=== PATIENT | male | born 1945 | race Caucasian/White ===

== ENCOUNTER 2024-01-07 17:51 | Inpatient (IN) | payer OTHER ==
[~2024-01-07] VITALS: Ht 188 cm; Wt 106.3 kg
[2024-01-07] MEDS ORDERED: Nitroglycerin 0.4 MG SUBL SL PRN (18:15)
[2024-01-07] MEDS ORDERED: NS 1,000 ML IV ONE (18:19)
[2024-01-07] MEDS ORDERED: NS 1,000 ML IV SCH (18:25)
[2024-01-07 18:33] LABS: BASOPHILS ABSOLUTE AUTO 0.04 K/mm3 (0.00-0.23); BASOPHILS PERCENT AUTO 1 % (0-2); EOSINOPHILS ABSOLUTE AUTO 0.13 K/mm3 (0.00-0.68); EOSINOPHILS PERCENT AUTO 2 % (0-6); Hematocrit 45.6 % (37.0-53.0); Hemoglobin 14.5 g/dL (13.5-17.5); IMMATURE GRAN ABSOLUTE AUTO 0.01 K/mm3 (0.00-0.10); IMMATURE GRAN PERCENT AUTO 0 % (0-1); LYMPHOCYTES ABSOLUTE AUTO 0.88 K/mm3 (0.84-5.20); LYMPHOCYTES PERCENT AUTO 13 % (21-46); MONOCYTES ABSOLUTE AUTO 0.54 K/mm3 (0.16-1.47); MONOCYTES PERCENT AUTO 8 % (4-13); Mean Corpuscular HGB 30.9 pg (26.0-34.0); Mean Corpuscular HGB Conc 31.8 g/dL (31.5-36.5); Mean Corpuscular Volume 97 fL (80-100); Mean Platelet Volume 9.2 fL (9.1-12.4); NEUTROPHILS ABSOLUTE AUTO 5.44 K/mm3 (1.96-9.15); NEUTROPHILS PERCENT AUTO 77 % (41-73); Platelet Count 218 K/mm3 (150-400); RDW Coefficient Variation 12.8 % (11.7-14.2); RDW Standard Deviation 45.7 fL (35.1-46.3); White Blood Cell Count 7.04 K/mm3 (4.00-11.30)
[2024-01-07 19:04] LABS: Bun/Creatinine Ratio 20.7 (12.0-20.0); Creatinine, Blood 1.4 mg/dL (0.60-1.20); Potassium, Blood 4.7 mmol/L (3.5-5.5)
[2024-01-07] MEDS ORDERED: Adenosine 3 MG/ML 2 ML Vial IV ONE (19:49)
[2024-01-07] MEDS ORDERED: FLU VACC TS2024-25(6MOS UP)/PF 45 MCG/0.5 ML SYRINGE IM SCH (20:45)
[2024-01-07] MEDS ORDERED: Ondansetron HCl 2 MG / ML 2ML Vial IV PRN (20:50)
[2024-01-07] MEDS ORDERED: Aspirin 81 MG Chew PO SCH (21:00)
[2024-01-07] MEDS ORDERED: Clopidogrel Bisulfate 75 MG Tab PO SCH (21:00)
[2024-01-07] MEDS ORDERED: Furosemide 10 MG / ML 2ML Vial IV SCH (21:00)
[2024-01-07] MEDS ORDERED: Atorvastatin 40 MG Tab PO SCH (21:00)
[2024-01-07] MEDS ORDERED: Apixaban 5 MG Tab PO SCH (21:00)
[2024-01-07 21:07] LABS: Base Excess Venous -4.2 mmol/L; Bicarbonate Venous 20.7 mmol/L (24.0-30.0); PCO2 Venous 43.8 mmHg (38-42); pH Blood Venous 7.31 (7.34-7.37)
[2024-01-07 21:38] LABS: Magnesium, Blood 2.2 mg/dL (1.6-2.4)
[2024-01-07 21:39] LABS: Albumin, Blood 3.5 g/dL (3.4-5.0); Albumin/Globulin Ratio 1.1 (0.8-1.8); Bilirubin, Total 0.5 mg/dL (0.1-1.0); Bun/Creatinine Ratio 21.8 (12.0-20.0); Calcium, Blood 8.9 mg/dL (8.5-10.1); Creatinine, Blood 1.42 mg/dL (0.60-1.20); Globulin, Blood 3.3 g/dL (2.2-4.0); Potassium, Blood 4.8 mmol/L (3.5-5.5); Thyroid Stimulating Hormone 1.35 uIU/mL (0.360-4.800); Total Protein, Blood 6.8 g/dL (6.4-8.2)
--- NOTE | 2024-01-07 23:26 | NUR ---
ASSUMED CARE PT A&O X4; SPO2 >92% ON RA; MAP >65; RATE IN THE 80'S. PT DENIES CP, SOB, AND NAUSEA. PT HAS STATED THAT HE LIVES IN A TRUCK AND DOES NOT HAVE SECURE HOUSING OR FOOD.
[2024-01-07 23:30] LABS: International Normalized Ratio 1.05; Prothrombin Time Results 11.2 Sec (9.7-11.5)
[2024-01-07] MEDS ORDERED: Heparin Sodium,Porcine/0.5 NS 500 ML IV SCH (23:45)
[2024-01-07] MEDS ORDERED: Dose Adjust by Pharmacy XX STA (23:49)
[2024-01-08] VITALS (10 sets, daily range): BP systolic 130–170; BP diastolic 56–100
[2024-01-08] MEDS ORDERED: HYDROcodone 5-APAP 325 TAB PO PRN (00:05)
[2024-01-08] MEDS ORDERED: TAMS.4ER PO (01:00)
[2024-01-08] MEDS ORDERED: AMIT25 PO (01:00)
[2024-01-08] MEDS ORDERED: JARDIANCE25 MG PO (01:01)
[2024-01-08] MEDS ORDERED: Vitamin D1000 UNI1 PO (01:02)
[2024-01-08] MEDS ORDERED: GLIP5 PO (01:03)
[2024-01-08] MEDS ORDERED: Vitamin B-12100 MCG PO (01:03)
[2024-01-08] MEDS ORDERED: METF500 PO (01:04)
[2024-01-08] MEDS ORDERED: POTA10T PO (01:05)
[2024-01-08] MEDS ORDERED: SULTRIDS PO (01:11)
[2024-01-08] MEDS ORDERED: TOPROL XL50 M1 PO (01:14)
[2024-01-08] MEDS ORDERED: ATOR40TA PO (01:14)
[2024-01-08] MEDS ORDERED: LOSA25 PO (01:15)
[2024-01-08] MEDS ORDERED: B-12500 MC2 PO (01:15)
[2024-01-08] MEDS ORDERED: PREG50 PO (01:17)
[2024-01-08] MEDS ORDERED: MELATONIN5 M1 PO (01:21)
[2024-01-08] MEDS ORDERED: ASPI81CH PO (01:22)
[2024-01-08] MEDS ORDERED: CLOP75 PO (01:22)
[2024-01-08] MEDS ORDERED: ELIQUIS5 M2 PO (01:22)
[2024-01-08 03:31] LABS: Hematocrit 42.6 % (37.0-53.0); Hemoglobin 13.6 g/dL (13.5-17.5); Mean Corpuscular HGB 31.1 pg (26.0-34.0); Mean Corpuscular HGB Conc 31.9 g/dL (31.5-36.5); Mean Corpuscular Volume 98 fL (80-100); Mean Platelet Volume 9.5 fL (9.1-12.4); Platelet Count 212 K/mm3 (150-400); RDW Standard Deviation 46.3 fL (35.1-46.3); Red Blood Cell Count 4.37 M/mm3 (4.30-5.90); White Blood Cell Count 6.84 K/mm3 (4.00-11.30)
[2024-01-08 03:45] LABS: International Normalized Ratio 1.06; Prothrombin Time Results 11.3 Sec (9.7-11.5)
[2024-01-08 03:51] LABS: Magnesium, Blood 2.1 mg/dL (1.6-2.4)
[2024-01-08 03:52] LABS: Albumin, Blood 3.5 g/dL (3.4-5.0); Albumin/Globulin Ratio 1.1 (0.8-1.8); Bilirubin, Total 0.3 mg/dL (0.1-1.0); Bun/Creatinine Ratio 23.1 (12.0-20.0); Calcium, Blood 8.8 mg/dL (8.5-10.1); Creatinine, Blood 1.34 mg/dL (0.60-1.20); Globulin, Blood 3.1 g/dL (2.2-4.0); Potassium, Blood 3.9 mmol/L (3.5-5.5); Total Protein, Blood 6.6 g/dL (6.4-8.2)
--- NOTE | 2024-01-08 06:18 | NUR ---
SHIFT SUMMARY PT ON AMIO AND HEPARIN GTT; SEE FLOWSHEET. RATE IN THE 70'S, SPO2 >92% ON RA; MAP >65. PT CONTINUES TO DENY CP, SOB, AND NAUSEA. PT IMPULSIVE AT TIMES, BUT EDUCATION GIVEN ON IMPORTANCE OF USING CALL LIGHT WHEN NEEDING TO USE RESTROOM/URINAL GIVEN. PT RESTING QUIETLY SINCE. PT HAS STATED THAT HE WILL LEAVE AMA THIS AM AND DOES NOT WANT PROCEDURE. SISTER CALLED THIS AM FOR UPDATE AND NOTIFIED ON PT'S DESIRE TO LEAVE. AT THIS TIME PT IS WILLING TO HAVE PROCEDURE DONE. NO OTHER ACUTE EVENTS THIS EVNENING.
[2024-01-08] MEDS ORDERED: Dose Adjust by Pharmacy XX STA ×2 (07:18→15:43)
[2024-01-08] MEDS ORDERED: Potassium Chl 20MEQ/Water100ML 100 ML IV STA (07:48)
[2024-01-08] MEDS ORDERED: Metoprolol Succinate 25 MG TABCR PO SCH (09:00)
[2024-01-08 11:04] LABS: Source, Urine Clean Catch
[2024-01-08] MEDS ORDERED: NS 250 ML IV ONE (11:20)
[2024-01-08] MEDS ORDERED: NS 1,000 ML IV ONE ×2 (11:20→12:14)
[2024-01-08] MEDS ORDERED: Heparin Sodium 1000 Units/ML 10ML MDV ONE (11:20)
[2024-01-08] MEDS ORDERED: FentaNYL Citrate 50 MCG/ML 2 ML Injection ONE (12:14)
[2024-01-08] MEDS ORDERED: Midazolam HCl 1MG / ML 2ML Vial ONE (12:14)
[2024-01-08 12:33] LABS: Bilirubin, Urine Neg (Neg); Blood, Urine Neg (Neg); Glucose Qualitative, Urine 4+ (Neg); Ketones, Urine Neg (Neg); Leukocyte Esterase, Urine Neg (Neg); Nitrite, Urine Neg (Neg); Protein, Urine Neg (Neg); Specific Gravity, Urine 1.015 (1.003-1.022); Urobilinogen, Urine NORM (Normal)
[2024-01-08 12:41] LABS: Appearance, Urine Clear (Clear); Color, Urine Yellow (P-Yellow)
[2024-01-08] MEDS ORDERED: HydrALAZINE HCl 20 MG / ML 1ML Vial ONE (12:53)
[2024-01-08] MEDS ORDERED: Verapamil HCL 2.5 MG/ML 2ML Injection ONE (12:55)
[2024-01-08] MEDS ORDERED: Nitroglycerin 2 MG/20 ML BTL ONE (12:55)
[2024-01-08 13:13] LABS: U Amphetamine Screen Not Detected; U Barbituate Screen Not Detected; U Benzodiazapine Screen Not Detected; U Buprenorphine Screen Not Detected; U Cannabinoids Screen Not Detected; U Cocaine Screen Not Detected; U Methadone Screen Not Detected; U Methamphetamine Screen Not Detected; U Opiates Screen Not Detected; U Oxycodone Screen Not Detected; U Phencyclidine Screen Not Detected
[2024-01-08] MEDS ORDERED: Spironolactone 12.5 MG TAB PO SCH (15:00)
[2024-01-08] MEDS ORDERED: Empagliflozin 25 MG TAB PO SCH (15:00)
--- NOTE | 2024-01-08 15:38 | NUR ---
PT ARRIVED TO PCU FROM [facility] [facility] AROUND [id number]. REPORT RECIEVED FROM T[employer] GAUGER RN. TR BAND IN PLACE, NO BLEEDING, BRUISING, OR HEMOTOMA IN PLACE. ARMBOARD IN PLACE. PT REMINDED TO NO USE HIS ARM, FRREQUENT REMINDING NEEDED.
[2024-01-08] MEDS ORDERED: Insulin Human Lispro 100 Units/ML 3ML Syringe SC SCH ×2 (16:30)
[2024-01-08] MEDS ORDERED: Sacubitril/Valsartan 24 MG-26 MG Tab PO SCH (17:00)
--- NOTE | 2024-01-08 18:28 | NUR ---
SHIFT SUMMARY PT A&O X4, CALM, COOPERATIVE TO CARE. WOUND/SCAB OF LEFT KNEE. HR IN THE 70'S, PACED RHYTHM, DENIES CHEST PAIN/PRESSURE, NUMB/TINGLING. O2 >92% ON RA, DENIES SOB. +BS, NO TENDERNESS. PT HAD ANGIOGRAM TODAY, LEFT RADIAL SITE, TR BAND COMPLETELY DEFLATED, NO BLEEDING OR HEMOTOMA NOTED. ARMBOARD IN PLACE. AMIODARONE GTT D/C, HEPARIN DRIP D/C. PT TO START PO AMIODARONE AND START BP MEDICATIONS. POSSIBLE DISCHARGE TOMORROW. WILL CONTINUE TO MONITOR AND REPORT TO BACK END ENGINEER RN.
[2024-01-08] MEDS ORDERED: Apixaban 5 MG Tab PO SCH (21:00)
[2024-01-08] MEDS ORDERED: Melatonin 5 MG Tablet PO SCH (21:00)
[2024-01-08] MEDS ORDERED: Amitriptyline HCl 25 MG Tab PO SCH (21:00)
[2024-01-08] MEDS ORDERED: Amiodarone HCl 200 MG Tab PO SCH (21:00)
[2024-01-08] MEDS ORDERED: Pregabalin 50 MG Capsule PO SCH (21:00)
[2024-01-08] MEDS ORDERED: Tamsulosin HCl 0.4 MG Cap PO SCH (21:00)
[2024-01-09 03:16] VITALS: BP 90/67
[2024-01-09 04:32] LABS: Albumin, Blood 3.3 g/dL (3.4-5.0); Anion Gap 12 mmol/L (3-11); Blood Urea Nitrogen 36 mg/dL (8-24); Bun/Creatinine Ratio 29.8 (12.0-20.0); CO2, Blood 17 mmol/L (21-32); Calcium, Blood 8.6 mg/dL (8.5-10.1); Chloride, Blood 115 mmol/L (98-108); Creatinine, Blood 1.21 mg/dL (0.60-1.20); Glomerular Filtration Rate 62 (60-); Glucose, Blood 177 mg/dL (70-99); Phosphorus, Blood 3.7 mg/dL (2.5-4.9); Potassium, Blood 4.4 mmol/L (3.5-5.5); Sodium, Blood 140 mmol/L (136-145)
--- NOTE | 2024-01-09 06:14 | NUR ---
SHIFT SUMMARY. SHIFT HAS BEEN UNREMARKABLE. PT AOX4, PLEASANT, COOPERATIVE WITH CARE, CALLS APPROPRIATELY, ABLE TO MAKE NEEDS KNOWN. HAS BEEN ABLE TO REST COMFORTABLY THROUGHOUT MOST OF SHIFT. VITALS HAVE REMAINED STABLE. LEFT RADIAL SITE REMAINS C/D/I, ARM BOARD IN PLACE. CONTINUES TO RUN PACED RHYTHM. INDEPENDENT WITH URINAL. BED LOCKED IN LOWEST POSITION. CALL LIGHT LEFT WITHIN REACH. CONTINUING TO MONITOR.
[2024-01-09] MEDS ORDERED: Torsemide 20 MG TAB PO SCH (07:00)
[2024-01-09 07:30] VITALS: BP 116/66
[2024-01-09] MEDS ORDERED: Cholecalciferol 1000 Unit Tablet (=25MCG) PO SCH (09:00)
[2024-01-09] MEDS ORDERED: Cyanocobalamin 500 MCG Tab PO SCH (09:00)
[2024-01-09] MEDS ORDERED: Losartan Potassium 25 MG Tab PO SCH (09:00)
[2024-01-09] MEDS ORDERED: Metoprolol Succinate 50 MG TABCR PO SCH (09:00)
[2024-01-09 11:17] VITALS: BP 109/75
[2024-01-09] MEDS ORDERED: AMIODARONE HCL400 M2 PO (11:31)
[2024-01-09] MEDS ORDERED: SPIR25 PO (11:32)
[2024-01-09] MEDS ORDERED: TORSE20 PO (11:32)
[2024-01-09] MEDS ORDERED: ENTRESTO 24 MG1 EACH PO (11:32)
== END 2024-01-09 13:30 | disposition home or self-care (01) | DRG 281 ==
LOC: ER 17:51 → PCU 21:55
PROVIDERS: Family Medicine; Nurse Practitioner Acute Care; Student in an Organized Health Care Education/Training Program; ADMIT Student in an Organized Health Care Education/Training Program
PROC: B2111ZZ Fluoroscopy of Multiple Coronary Arteries using Low Osmolar Contrast (ICD-10-PCS; principal; 2024-01-08)
PROC: 4A023N6 Measurement of Cardiac Sampling and Pressure, Right Heart, Percutaneous Approach (ICD-10-PCS; 2024-01-08)
DX: I47.10 Supraventricular tachycardia, unspecified (principal); E87.20 Acidosis, unspecified; I21.A1 Myocardial infarction type 2; I13.0 Hypertensive heart and chronic kidney disease with heart failure and stage 1 through stage 4 chronic kidney disease, or unspecified chronic kidney disease; I50.22 Chronic systolic (congestive) heart failure; I48.92 Unspecified atrial flutter; N40.0 Benign prostatic hyperplasia without lower urinary tract symptoms; E78.5 Hyperlipidemia, unspecified; E11.22 Type 2 diabetes mellitus with diabetic chronic kidney disease; N18.30 Chronic kidney disease, stage 3 unspecified; F17.220 Nicotine dependence, chewing tobacco, uncomplicated; F32.A Depression, unspecified; I48.91 Unspecified atrial fibrillation; I27.20 Pulmonary hypertension, unspecified; I25.5 Ischemic cardiomyopathy; I25.10 Atherosclerotic heart disease of native coronary artery without angina pectoris; Z95.5 Presence of coronary angioplasty implant and graft; Z91.148 Patient's other noncompliance with medication regimen for other reason; I25.2 Old myocardial infarction; Z96.651 Presence of right artificial knee joint; Z95.0 Presence of cardiac pacemaker; Z98.890 Other specified postprocedural states
CPT/HCPCS: 36415; 71045; 76937; 80048; 80053; 80069; 81003; 82550; 82803; 82947; 83605; 83735; 83880; 84443; 84484; 85025; 85027; 85347; 85610; 85730; 93005; 93010; 93306; 93457; 94762; 96361; 96365; 96375; 96376; 99152; 99153; 99285-25; A9270; C1769; C1894; G0378; J0153; J0282; J0360; J1644; J1940; J2250; J3010; J3480; J7030; J7050; J7060; Q9967